=== PATIENT | female | born 1960 | race Caucasian/White ===

== ENCOUNTER 2017-10-27 14:23 | Emergency (ER) | payer MEDICAID ==
[~2017-10-27] VITALS: Ht 147.3 cm; Wt 50.0 kg
[2017-10-27 14:35] VITALS: Ht 147.3 cm; Wt 50.0 kg
[2017-10-27] MEDS ORDERED: ONDANSETRON 4 MG INJ IV STA (14:40)
[2017-10-27] MEDS ORDERED: SOD CHLORIDE 0.9% 1,000 ML IV STA (14:40)
[2017-10-27] MEDS ORDERED: FAMOTIDINE 20 MG INJ IV STA (14:40)
--- NOTE | 2017-10-27 14:44 | ERD ---
ER Documentation Chief Complaint Chief Complaint etoh this morning; ap HPI Patient is a 57-year-old female with history of alcohol abuse to presents to the ER complaining of epigastric pain and vomiting since yesterday. She states that she has been drinking alcohol daily for 1 week. She was previously in rehabilitation. She denies drug use or other ingestion. She denies suicidal ideation. She denies fever. She denies bloody emesis or dark stool. She denies history of cirrhosis. ROS All systems reviewed and are negative except as per history of present illness. Medications Home Meds Active Scripts Famotidine* (Pepcid*) 20 Mg Tablet, 20 MG PO BID for 7 Days, TAB Prov:SINDHU CARDENAS MD 10/27/17 Chlordiazepoxide* (Chlordiazepoxide*) 25 Mg Capsule, 25 MG PO Q8 Y for CONTROL WITHDRAWAL SYMPTOMS, #6 CAP Prov:SINDHU CARDENAS MD 10/27/17 Reported Medications Folic Acid/Mv,Fe,Other Min (Centrum Complete Multivit Tab) 1 Each Tablet, 1 EACH PO DAILY, TAB 10/27/17 Aspirin* (Aspirin* EC) 81 Mg Tablet.dr, 81 MG PO DAILY, TAB 10/27/17 Gemfibrozil* (Gemfibrozil*) 600 Mg Tablet, 600 MG PO BID, TAB 10/27/17 Allergies Allergies: Coded Allergies: No Known Drug Allergies (Verified Allergy, Unknown, 10/27/17) PMhx/Soc Past medical history: Alcohol abuse, hypercholesterolemia Past surgical history: Denies Social history: Drinks alcohol, denies tobacco or illicit drugs FmHx Family History: No coronary disease, No diabetes Physical Exam Vitals Vital Signs Date Time Temp Pulse Resp B/P Pulse Ox O2 Delivery O2 Flow Rate FiO2 10/27/17 16:27 75 18 116/86 100 Room Air 10/27/17 14:35 99.0 91 18 145/92 100 Physical Exam Const: Alert, appears mildly uncomfortable, mildly lethargic, odor of alcohol on breath Head: Atraumatic Eyes: Normal Conjunctiva, No pallor, no icterus ENT: Normal External Ears, Nose and Mouth. Mucous membranes moist Neck: Full range of motion. No JVD Resp: Clear to auscultation bilaterally, No wheezes, no rales Cardio: Mild tachycardia, regular rhythm, no murmurs Abd: Soft, Tenderness in epigastrium and left upper quadrant without guarding or rebound, non distended. Skin: No petechiae or rashes Back: No midline or flank tenderness Ext: No cyanosis, or edema Neur: Awake and alert, Cranial nerves II through XII intact bilaterally, strength and sensation full in 4 extremities, no tremor Psych: Normal Mood and Affect Result Diagram: 10/27/17 1450 10/27/17 1450 Results 24 hrs Laboratory Tests Test 10/27/17 14:50 10/27/17 15:57 White Blood Count 5.810^3/ul Red Blood Count 3.7710^6/ul Hemoglobin 13.4g/dl Hematocrit 36.4% Mean Corpuscular Volume 96.6fl Mean Corpuscular Hemoglobin 35.5pg Mean Corpuscular Hemoglobin Concent 36.8g/dl Red Cell Distribution Width 13.0% Platelet Count 47001^3/UL Mean Platelet Volume 10.2fl Neutrophils % 46.4% Lymphocytes % 46.2% Monocytes % 6.0% Eosinophils % 0.2% Basophils % 0.9% Nucleated Red Blood Cells % 0.0/100WBC Neutrophils # 2.710^3/ul Lymphocytes # 2.710^3/ul Monocytes # 0.410^3/ul Eosinophils # 0.010^3/ul Basophils # 0.110^3/ul Nucleated Red Blood Cells # 0.010^3/ul Sodium Level 145mmol/L Potassium Level 3.6mmol/L Chloride Level 103mmol/L Carbon Dioxide Level 20mmol/L Anion Gap 26 Blood Urea Nitrogen 5mg/dl Creatinine 0.54mg/dl Glucose Level 102mg/dl Calcium Level 8.9mg/dl Total Bilirubin 0.2mg/dl Direct Bilirubin 0.00mg/dl Indirect Bilirubin 0.2mg/dl Aspartate Amino Transf (AST/SGOT) 91IU/L Alanine Aminotransferase (ALT/SGPT) 47IU/L Alkaline Phosphatase 128IU/L Total Protein 8.2g/dl Albumin 4.8g/dl Globulin 3.40g/dl Albumin/Globulin Ratio 1.41 Lipase 287U/L Serum HCG, Qualitative NEGATIVE Ethyl Alcohol Level 272.0mg/dl Urine Color STRAW Urine Clarity CLEAR Urine pH 8.0 Urine Specific [place] 1.004 Urine Ketones TRACEmg/dL Urine Nitrite NEGATIVEmg/dL Urine Bilirubin NEGATIVEmg/dL Urine Urobilinogen NEGATIVEmg/dL Urine Leukocyte Esterase NEGATIVELeu/ul Urine Hemoglobin NEGATIVEmg/dL Urine Glucose NEGATIVEmg/dL Urine Total Protein NEGATIVEmg/dl Current Medications Medications (Trade) Dose Ordered Sig/Marina Route PRN Reason Start Time Stop Time Status Last Admin Dose Admin Sodium Chloride (NS) 1,000 ml @ 1,000 mls/hr Q1H STAT IV 10/27/17 14:40 10/27/17 15:39 DC 10/27/17 14:57 Ondansetron HCl (Zofran Inj) 4 mg ONCE STAT IV 10/27/17 14:40 10/27/17 14:54 DC 10/27/17 14:57 Famotidine 20 mg 20 mg ONCE STAT IV 10/27/17 14:40 10/27/17 14:54 DC 10/27/17 14:57 Lactated Ringer's (Lr) 1,000 ml @ 1,000 mls/hr Q1H ONCE IV 10/27/17 18:30 10/27/17 19:29 DC 10/27/17 18:30 Chlordiazepoxide (Librium) 25 mg ONCE ONCE PO 10/27/17 20:30 10/27/17 20:31 Procedures/MDM EKG read by me: Time 1455, rate 89 Rhythm: Normal sinus [place]: Normal Intervals: Prolonged QTC ST-T waves: Inferior, anterior and lateral T-wave inversion, no ST elevation or depression Ectopy: No Q-waves: No Impression: T-wave inversion in inferior and anterolateral leads are not clearly ischemic. MDM: Patient is a 57-year-old female who presents with vomiting, epigastric pain and right upper quadrant pain in the setting of heavy alcohol use. She had tenderness in her abdomen. She denied chest pain or shortness of breath. She reported heavy alcohol use for the last week after relapsing from her rehabilitation program. Her laboratory evaluation was unremarkable except for an elevated anion gap and a borderline bicarbonate. She did not have significant ketosis on urinalysis. Although I did not definitively determine the cause of her acidosis, I suspect that she may have had mild lactic acidosis from dehydration and/or underlying liver disease. She was given IV fluids and Pepcid, and on reassessment states that she feels much better. She states that her abdominal pain is significantly improved and she has a benign abdominal exam. There is no history to suggest a GI bleed. She is alert and oriented. She does have mild tremor on exam including tongue fasciculation which is suggestive of alcohol withdrawal. I will prescribe her Librium for home use, have counseled her on return precautions, and give her Pepcid for presumed alcoholic gastritis as the cause of her abdominal pain. Departure Diagnosis: Primary Impression: Alcoholic intoxication Complication of substance-induced condition: uncomplicated Qualified Code: F10.920 - Alcoholic intoxication without complication Additional Impressions: Vomiting Vomiting type: unspecified Vomiting Intractability: non-intractable Nausea presence: with nausea Qualified Code: R11.2 - Non-intractable vomiting with nausea, unspecified vomiting type Alcohol withdrawal Complication of substance-induced condition: uncomplicated Qualified Code: F10.230 - Alcohol withdrawal syndrome without complication Condition: SINDHU Tam MD Oct 27, 2017 14:44
[2017-10-27 15:13] LABS: BASOPHIL # 0.1 10^3/ul (0.0-0.1); BASOPHILS % 0.9 % (0.0-2.0); EOSINOPHILS % 0.2 % (0.0-7.0); HEMATOCRIT 36.4 % (37.0-47.0); HEMOGLOBIN 13.4 g/dl (12.0-16.0); LYMPHOCYTES # 2.7 10^3/ul (0.8-2.9); LYMPHOCYTES % 46.2 % (15.0-51.0); MEAN CORPUSCULAR HEMOGLOBIN 35.5 pg (29.0-33.0); MEAN CORPUSCULAR HGB CONC 36.8 g/dl (32.0-37.0); MEAN CORPUSCULAR VOLUME 96.6 fl (82.0-101.0); MEAN PLATELET VOLUME 10.2 fl (7.4-10.4); MONOCYTE # 0.4 10^3/ul (0.3-0.9); NEUTROPHIL # 2.7 10^3/ul (1.6-7.5); NEUTROPHILS % 46.4 % (39.0-77.0); PLATELET COUNT 191 10^3/UL (140-415); RED BLOOD COUNT 3.77 10^6/ul (4.20-5.40); WHITE BLOOD COUNT 5.8 10^3/ul (4.8-10.8)
[2017-10-27 15:38] LABS: ALBUMIN 4.8 g/dl (3.3-4.9); ALBUMIN/GLOBULIN RATIO 1.41; BILIRUBIN,INDIRECT 0.2 mg/dl (0-1.1); BILIRUBIN,TOTAL 0.2 mg/dl (0.2-1.3); CALCIUM 8.9 mg/dl (8.4-10.2); CREATININE 0.54 mg/dl (0.44-1.00); POTASSIUM 3.6 mmol/L (3.5-5.1); TOTAL PROTEIN 8.2 g/dl (6.1-8.1)
[2017-10-27 16:27] VITALS: BP 116/86; PULSE 75; RESP 18
[2017-10-27] MEDS ORDERED: GEMF600T60 PO (16:42)
[2017-10-27] MEDS ORDERED: ASPI-664 PO (16:43)
[2017-10-27] MEDS ORDERED: MULT1TAB6 PO (16:43)
[2017-10-27 16:55] LABS: ADD UMIC NO; UR ASCORBIC ACID NEGATIVE (NEGATIVE); UR BILIRUBIN (Dip) NEGATIVE (NEGATIVE); UR BLOOD (Dip) NEGATIVE (NEGATIVE); UR CLARITY CLEAR (CLEAR); UR COLOR STRAW (YELLOW); UR GLUCOSE (Dip) NEGATIVE (NEGATIVE); UR KETONES (Dip) TRACE mg/dL (NEGATIVE); UR LEUKOCYTE ESTERASE (Dip) NEGATIVE Leu/ul (NEGATIVE); UR NITRITE (Dip) NEGATIVE (NEGATIVE); UR SPECIFIC GRAVITY (Dip) 1.004 (1.003-1.030); UR TOTAL PROTEIN (Dip) NEGATIVE (NEGATIVE); UR UROBILINOGEN (Dip) NEGATIVE (NEGATIVE)
[2017-10-27] MEDS ORDERED: LACTATED RINGER'S 1,000 ML IV ONE (18:30)
[2017-10-27] MEDS ORDERED: FAMO-96 PO (20:17)
[2017-10-27] MEDS ORDERED: CHLO25CA9 PO (20:17)
[2017-10-27] MEDS ORDERED: CHLORDIAZEPOXIDE 25 MG CAP PO ONE (20:30)
== END 2017-10-27 21:13 | disposition home or self-care (01) ==
LOC: E/R 14:23
DX: F10.230 Alcohol dependence with withdrawal, uncomplicated (principal); R11.2 Nausea with vomiting, unspecified; Z79.82 Long term (current) use of aspirin
CPT/HCPCS: 36415; 80053; 80306; 81003; 83690; 84703; 85025; 93005; 96374; 96375; J2405; J7030; J7120; Z7502; Z7610